=== PATIENT | female | born 2000 | race Caucasian/White ===

== ENCOUNTER 2020-06-16 11:49 | Outpatient (REF) | payer BC, SELFPAY ==
[2020-06-16 12:56] LABS: MANUAL DIFF FLAG NO
[2020-06-16 13:03] LABS: Basophils Absolute Auto 0.1 X10*3/uL (0.0-0.2); Basophils Percent Auto 0.6 % (0-2); Eosinophils Absolute Auto 0.1 X10*3/uL (0.0-0.4); Eosinophils Percent Auto 0.6 % (0-4); Hematocrit 38.2 % (37-47); Hemoglobin 12.7 g/dl (12.0-16.0); Imm Gran Abs Auto 0.02 X10*3/uL (0.00-0.03); Imm Gran Pct Auto 0.3 % (0.0-0.4); Lymphocytes Percent Auto 38.3 % (20-40); Mean Corpuscular HGB Conc 33.2 g/dl (31.0-35.0); Mean Corpuscular Hemoglobin 31.1 pg (27.0-33.0); Mean Corpuscular Volume 93.4 fL (80-98); Mean Platelet Volume 9.1 fL (9.4-12.3); Monocytes Absolute Auto 0.7 X10*3/uL (0.1-1.2); Monocytes Percent Auto 8.2 % (2-11); Neutrophils Absolute Auto 4.1 X10*3/uL (2.0-8.3); Platelet Count 239 X10*3/uL (160-400); Red Blood Count 4.09 X10*6/uL (4.20-5.50); Red Cell Distribution Width 11.9 % (11.0-16.0); White Blood Count 7.9 X10*3/uL (4.8-10.8)
[2020-06-16 14:11] LABS: Erythrocyte Sedimentation Rate 4 MM/HR (0-20)
[2020-06-16 14:17] LABS: Alanine Aminotransferase 10 U/L (0-31); Albumin Level 4.6 g/dL (3.5-5.0); Alkaline Phosphatase 50 U/L (39-117); Anion Gap 14 (12-20); Aspartate Amino Transferase 16 U/L (5-31); Bilirubin Total 0.7 mg/dL (0.0-1.0); Blood Urea Nitrogen 7 mg/dL (9-16); C Reactive Protein 0.02 mg/dL (< or = 0.50); Calcium 9.1 mg/dL (8.4-10.2); Carbon Dioxide 24 mmol/L (22-29); Chloride 104 mmol/L (96-108); Estimated Glomerular Filt Rate > 60; Glucose Random 84 mg/dL (60-115); Potassium 4.7 mmol/L (3.3-5.1); Sodium 137 mmol/L (135-145)
[2020-06-16 14:37] LABS: Thyroid Stimulating Hormone 1.76 uIU/mL (0.32-4.0)
[2020-06-17 12:38] LABS: Transglutaminase Ab IgG 1 U/mL
[2020-06-17 14:11] LABS: Immunoglobulin A 154 mg/dL (47-310)
[2020-06-17 22:11] LABS: Gliadin Deamidated IgA Ab 3 Units; Gliadin Deamidated IgG Ab 2 Units
[2020-06-18 12:52] LABS: Transglutaminase IgA 1 U/mL
[2020-06-23 19:52] LABS: Endomysial IgA Antibody Negative (Negative)
== END 2020-06-16 11:50 | disposition home or self-care (01) ==
LOC: HO.MANLDS 11:49
PROVIDERS: PCP Internal Medicine; Visit Provider Physician Assistant
DX: K58.9 Irritable bowel syndrome, unspecified (principal)
CPT/HCPCS: 36415; 80053; 82784; 83516; 84443; 85025; 85652; 86140; 86255; 86256

== ENCOUNTER 2020-12-30 12:08 | Outpatient (REF) | payer BC, SELFPAY ==
[2020-12-30 12:54] LABS: Appearance Urine CLEAR; Color Urine YELLOW; Glucose Urine UA NEG (NEG); Leukocyte Esterase Urine NEG (NEG); Nitrite Urine NEG (NEG); Urine Blood NEG (NEG); Urine Ketones NEG (NEG); Urine Protein NEG (NEG-TRACE)
== END 2020-12-30 12:09 | disposition home or self-care (01) ==
LOC: HO.MANLDS 12:08
PROVIDERS: PCP Internal Medicine; Visit Provider Internal Medicine
DX: N10 Acute pyelonephritis (principal)
CPT/HCPCS: 81003

== ENCOUNTER 2021-03-03 08:53 | Outpatient (REF) | payer BC, SELFPAY ==
[2021-03-03 11:00] LABS: Appearance Urine HAZY; Color Urine YELLOW; Glucose Urine UA NEG (NEG); Leukocyte Esterase Urine NEG (NEG); Nitrite Urine NEG (NEG); Specific Gravity - Urine 1.015 (1.005-1.025); Urine Blood NEG (NEG); Urine Ketones NEG (NEG); Urine Protein NEG (NEG-TRACE)
== END 2021-03-03 08:54 | disposition home or self-care (01) ==
LOC: HO.MANLDS 08:53
PROVIDERS: PCP Physician Assistant; Visit Provider Physician Assistant
DX: N10 Acute pyelonephritis (principal)
CPT/HCPCS: 81003

== ENCOUNTER 2023-07-19 13:34 | Outpatient (AMB) | payer BC, SELFPAY ==
--- NOTE | 2023-07-19 13:37 | MHC.OFFVIS ---
Intake Vital Signs 07/19/23 13:38 Height 5 ft 4 in Weight 123 lb 14.397 oz BMI 21.3 BP 102/58 L Blood Pressure Location Rt brachial Position Sitting Pulse 99 Pulse Source Pulse Oximeter Pulse Oximetry (%) 98 Oxygen Delivery Method Room Air Intake Visit Reasons: + HERMELINDA Intake Note: New patient presents today for consult, referred by PCP. Reports issues with body temp. Extremely cold, excessive sweating, night sweats. Also reports pain in hands mostly R ; Changes in color Symptoms started approx 2 years ago Sports Medicine Specialist Required: No Accompanied by: Self / Same As Patient Allergies No Known Allergies Allergy (Verified 07/19/23 13:43) Medication List - Last Reconciled 07/19/23 by Kale Armijo MD escitalopram oxalate 10 mg PO DAILY lamotrigine 200 mg PO DAILY HPI HPI Comments History of Present Illness Details This is a 23-year-old female who presents for evaluation of a positive HERMELINDA. Patient states that she has been having temperature regulation issues for the last 2 years. She gets excessive sweating in her armpits, torso and hands for the last 2 years. She also states that her whole body feels cold, she states that her hands have been reddish almost all her life. She denies any triphasic color change of her hands to the cold. She denies any ulcers on her digits. She stated that her duloxetine was changed to lamotrigine without much improvement. She states that she gets intermittent joint pain, especially in her right hand ([id number]) mostly with use. She denies any specific joint swelling. She denies any recent weight change. Denies any fevers. She denies any blood or frothy urine. Denies any oral ulcers. Denies any history of DVT/PE. She is unaware of any family history of an autoimmune rheumatic disease [facility] Medical History (Updated 07/19/23 @ 14:26 by Kale Armijo MD) Raynauds phenomenon Anxiety History of depression Other specified abnormal immunological findings in serum HERMELINDA positive Surgical History No history of previous surgery Social History Alcohol intake: current Alcohol intake frequency: a few times a week Patient Tobacco Use Status: Current someday Tobacco user Current occupational status: employed Current occupation: [employer] Female Reproductive History Menstrual Total pregnancies: 0 Review of Systems Const Denies weight gain and Denies weight loss Eyes Reports tunnel vision Card Denies dyspnea Resp Denies cough and Denies dyspnea Musc Reports arthralgias, Denies joint swelling and Denies stiffness Skin/Breast Reports erythema and Denies rash Psych Reports anxiety and Reports depression Endo Reports polydipsia Physical Exam Vital Signs: Last Vital Signs Pulse 99 07/19/23 13:38 BP 102/58 L 07/19/23 13:38 Pulse Ox 98 07/19/23 13:38 Oxygen Delivery Method Room Air 07/19/23 13:38 BMI result Body Mass Index 21.3 Const General: cooperative, healthy appearing and comfortable Nutritional Appearance: average body habitus Orientation/consciousness: patient oriented x3 Limitations: no limitations HEENT Head: Yes normocephalic and Yes atraumatic Mouth: moist mucous membranes Resp Effort & Inspection: normal respiratory effort and able to speak in complete sentences Auscultation: clear to auscultation bilaterally Cardio Rate: regular rate Rhythm: regular rhythm Heart sounds: S1 normal heart sound present GI Inspection: No distended Palpation (GI): Soft to palpation and nontender Skin Other: Erythematous discoloration of her knuckles but no skin rashes Neuro General: patient oriented x3 Extrem Other: No active synovitis Normal nailfold capillaroscopy Slightly sweaty hands Results Reviewed Results Reviewed: Labs 04/2023? Vitamin B12 512 normal? CRP undetectable? ESR 3 HbA1c 5.3% Ferritin 14 normal Folic acid 17.4? TSH normal Free T3 normal? Free T4 normal? RF/ anti TPO negative? CBC unremarkable HERMELINDA 1-160 dfs pattern Assessment & Plan Assessment & Plan (1) HERMELINDA positive: Code(s): R76.8 - Other specified abnormal immunological findings in serum Plan: This is a 23-year-old female who presents for evaluation of a positive HERMELINDA. This was ordered in the context of increased sweating and diffuse pain. Upon evaluation I do not see any signs suggestive of an autoimmune rheumatic disease. There are no swollen joints. No skin rashes. Labs showed a positive HERMELINDA 1-160 in a dfs pattern which is generally seen in healthy individuals. Negative RF with normal inflammatory markers. There are no cytopenias. At this point the significance of her positive HERMELINDA is unclear Discussed symptoms and signs suggestive of an autoimmune rheumatic disease. 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
[2023-07-19 13:38] VITALS: BP 102/58; PULSE 99; O2SAT 98; BMI 21.3
== END 2023-07-19 14:46 | disposition home or self-care (01) ==
PROVIDERS: PCP Physician Assistant; Visit Provider Student in an Organized Health Care Education/Training Program
DX: R76.8 Other specified abnormal immunological findings in serum (principal); L74.512 Primary focal hyperhidrosis, palms
CPT/HCPCS: 99203

== ENCOUNTER → 2023-07-19 13:34 | Outpatient (BNVA) | payer BC, SELFPAY | PROVIDERS: PCP Physician Assistant; Visit Provider Student in an Organized Health Care Education/Training Program ==